=== PATIENT | female | born 1995 | race Caucasian/White ===

== ENCOUNTER 2017-05-11 15:56 | Emergency (ER) | payer OTHER ==
[2017-05-11 19:20] LABS: HEMOGLOBIN 14.5 gm/dl (12.3-15.3); RED BLOOD COUNT 4.82 M/UL (4.00-5.10); WHITE BLOOD COUNT 6.6 K/UL (4.5-11.0)
[2017-05-11 19:39] LABS: BUN/CREATININE RATIO 10 (0-10)
== END 2017-05-11 20:50 | disposition home or self-care (01) ==
LOC: ER1 15:56
PROVIDERS: Nurse Practitioner Family
DX: N39.0 Urinary tract infection, site not specified (principal)
CPT/HCPCS: 36415; 71020; 80053; 81001; 82150; 83605; 83690; 84703; 85025; 87040; 87077; 87081; 87086; 87186; 87880; 96361; 96365; 99284; J0696; J7050

== ENCOUNTER 2021-12-21 21:49 | Emergency (ER) | payer OTHER ==
[~2021-12-21 21:49] MED LIST: ASPIRIN CHEWABL81 MG PO; PERCOCET 5-3251 EACH PO
[2021-12-21 23:10] LABS: HEMOGLOBIN 13.2 gm/dl (12.3-15.3); RED BLOOD COUNT 4.75 M/UL (4.00-5.10); WHITE BLOOD COUNT 6.7 K/UL (4.5-11.0)
[2021-12-21 23:30] LABS: BUN/CREATININE RATIO 11 (0-10)
== END 2021-12-22 02:20 | disposition home or self-care (01) ==
LOC: ER1 21:49
PROVIDERS: Family Medicine
DX: J06.9 Acute upper respiratory infection, unspecified (principal); Z20.822 Contact with and (suspected) exposure to COVID-19; R06.00 Dyspnea, unspecified; I10 Essential (primary) hypertension; F41.9 Anxiety disorder, unspecified; E66.01 Morbid (severe) obesity due to excess calories; Z88.0 Allergy status to penicillin
CPT/HCPCS: 71045; 80053; 81001; 83605; 83735; 84100; 85025; 87040; 87086; 99285; U0002